=== PATIENT | male | born 1985 | race African-American/Black ===

== ENCOUNTER 2017-08-08 18:03 | Inpatient (IN) | payer OTHER ==
[~2017-08-08] VITALS: Ht 177.8 cm; Wt 79.0 kg
[2017-08-08 18:46] VITALS: BP 125/80; PULSE 69; RESP 16; TEMP 99.1; O2SAT 100
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
[2017-08-08 21:54] VITALS: BP 109/64; PULSE 52; RESP 18; TEMP 98.2; O2SAT 99
[2017-08-09 02:29] VITALS: BP 126/65; PULSE 64; RESP 18; TEMP 99.1; O2SAT 100
[2017-08-09 06:19] VITALS: BP 134/62; PULSE 60; RESP 18; TEMP 98.6; O2SAT 100
[2017-08-09] MEDS ORDERED: LORazepam 2 MG/ML VIAL IM PRN ×2 (13:15)
[2017-08-09] MEDS ORDERED: ACETAMINOPHEN 325 MG TAB PO PRN (13:15)
[2017-08-09] MEDS ORDERED: LORazepam 1 MG TAB PO PRN (13:15)
[2017-08-09] MEDS ORDERED: NICOTINE 21 MG/24 HR PATCH T-DERMAL SCH (13:15)
[2017-08-09] MEDS ORDERED: ALUMINUM/MAGNESIUM/SIMETH 30 ML CUP PO PRN (13:15)
[2017-08-09] MEDS ORDERED: MAGNESIUM HYDROXIDE SUSP 30 ML CUP PO PRN (13:15)
[2017-08-09] MEDS ORDERED: LORazepam 0.5 MG TAB PO PRN (13:15)
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
[2017-08-09 16:30] VITALS: BP 143/70; PULSE 62; RESP 18; TEMP 98.3; O2SAT 100
[2017-08-09 16:42] VITALS: BP 143/73; PULSE 62; RESP 18; TEMP 98.3; O2SAT 100
[2017-08-09] MEDS: buPROPion HCL 75 MG TAB PO SCH (21:02)
[2017-08-10 05:51] VITALS: BP 121/68; PULSE 62; RESP 16; TEMP 98; O2SAT 97
[2017-08-10] MEDS: buPROPion HCL 75 MG TAB PO SCH (08:32)
[2017-08-10 11:15] LABS: BICARBONATE 21.2 MEQ/L (21.0-32.0); BLOOD UREA NITROGEN 10 MG/DL (7-18); CALCIUM 9.1 MG/DL (8.5-10.1); CHLORIDE 105 MEQ/L (98-107); CHOLESTEROL 175 MG/DL (120-200); CREATININE 1.41 MG/DL (0.60-1.30); GLOMERULAR FILTRATION RATE 72 ML/MIN (>89); GLUCOSE,RANDOM 63 MG/DL (74-106); SODIUM (NA) 142 MEQ/L (136-145); TRIGLYCERIDES 74 MG/DL (42-150)
[2017-08-10 11:18] LABS: CHOLESTEROL/ HDL RATIO 3.37 RATIO; HDL CHOLESTEROL 51.9 MG/DL (40.0-60.0); LDL CHOLESTEROL 108 MG/DL (0-99)
[2017-08-10] MEDS ORDERED: BUPR75TA PO (12:48)
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
[2017-08-10 16:26] LABS: HEMOGLOBIN A1C 6.2 % (4.3-6.0)
== END 2017-08-10 16:35 | disposition home or self-care (01) | DRG 881 ==
LOC: NEPJ 18:03 → NEDA 08-09 13:08 → H260 08-09 13:30
PROVIDERS: ADMIT Psychiatry & Neurology Psychiatry; ATTEND Psychiatry & Neurology Psychiatry
DX: F32.9 Major depressive disorder, single episode, unspecified (principal); R45.851 Suicidal ideations; F12.90 Cannabis use, unspecified, uncomplicated
CPT/HCPCS: 80048; 80061; 83036; 99285